=== PATIENT | male | born 1965 | race Caucasian/White ===

== ENCOUNTER 2018-03-12 05:58 | Inpatient (IN) | payer OTHER ==
[2018-03-05 15:56] VITALS: BMI 22.9
[2018-03-12] MEDS ORDERED: oxyCODONE HCL 10 MG SUSTAINED ACTING TABLET PO ONE (07:00)
[2018-03-12] MEDS ORDERED: PROPOFOL 20 ML ONE (07:33)
[2018-03-12] MEDS ORDERED: BUPIVACAINE HCL/PF 0.5% (5MG/ML) 10 ML VIAL ONE (07:36)
[2018-03-12] MEDS ORDERED: ceFAZolin SODIUM 1 GM VIAL ONE (07:37)
[2018-03-12] MEDS ORDERED: BUPIVACAINE LIPOSOME/PF (EXPAREL) 266 MG/20 ML VIAL ONE (07:40)
[2018-03-12] MEDS ORDERED: MIDAZOLAM HCL 2 MG/2 ML SINGLE DOSE VIAL ONE (07:40)
[2018-03-12] MEDS ORDERED: BUPIVACAINE HCL/PF (5 MG/ML) 30 ML VIAL IJ ONE (07:40)
[2018-03-12] MEDS ORDERED: LIDOCAINE 1%/EPI 1:100000 (20 ML MULTI DOSE VIAL) ONE (07:51)
[2018-03-12] MEDS ORDERED: THROMBIN (BOVINE) 5,000 UNIT VIAL TP ONE ×2 (07:51→09:26)
--- NOTE | 2018-03-12 08:17 | HP ---
History & Physical Update - History History: No Change - Physical Physical: No Change - Assessment Assessment: No Change - Plan Plan: No Change (full H&P in chart from his medical doctor on 02/24/2018)
[2018-03-12] MEDS ORDERED: LIDOCAINE HCL/PF 2% SDV 5ML VIAL ONE (08:51)
[2018-03-12] MEDS ORDERED: ACETAMINOPHEN 1000 MG/100 ML VIAL (NON FORMULARY) IVPB PRN (11:32)
[2018-03-12] MEDS ORDERED: oxyCODONE HCL 5 MG TABLET PO PRN ×2 (11:32)
[2018-03-12] MEDS ORDERED: ONDANSETRON 4 MG/2 ML VIAL IVPUSH PRN (11:32)
[2018-03-12] MEDS ORDERED: ACETAMINOPHEN 325 MG TABLET (FP) PO SCH (11:45)
[2018-03-12] MEDS ORDERED: LACTATED RINGERS SOLUTION 1,000 ML IV SCH (11:45)
[2018-03-12] MEDS ORDERED: ACETAMINOPHEN 325 MG TABLET (FP) PO PRN (11:47)
--- NOTE | 2018-03-12 12:02 | OP ---
Operative Note - Note: Operative Date: 03/12/18 Pre-Operative Diagnosis: spondylolisthesis Operation: posterior transformainal interbody fusion of L5-S1/decompression, instrumentation with allograft and neuromonitoring Surgeon: Lenin Fuentes Linter Drier Operator: Miranda Alcala Anesthesiologist/WRECKING SUPERVISOR: Tati Gavin Anesthesia: Spinal Estimated Blood Loss (mls): 20 Fluid Volume Replaced (mls): 850 Operative Report Dictated: Yes
--- NOTE | 2018-03-12 12:04 | SURG ---
Surgery Paleontology Teacher Note Paleontology Teacher: Miranda Alcala PA-C Date of Service: 03/12/18 Diagnosis: spondylolisthesis Procedure: posterior transformainal interbody fusion of L5-S1 with decompression/ instrumentation with allograft and neuromonitoring I was present for the entirety of the operative procedure. For further detail, please refer to operative report. Visit type - Case Type Case Type: Scheduled - Emergency Emergency Visit: No - New patient This patient is new to me today: Yes Date on this admission: 03/12/18
[2018-03-12] MEDS ORDERED: diazePAM 2 MG TABLET PO SCH ×2 (13:00→16:12)
[2018-03-12] MEDS ORDERED: diazePAM 5 MG TABLET ONE (13:11)
--- NOTE | 2018-03-12 13:16 | OP ---
DATE OF OPERATION: 03/12/2018 PREOPERATIVE DIAGNOSES: 1. Spinal stenosis, L5-S1. 2. Degenerative disk disease. POSTOPERATIVE DIAGNOSES: 1. Spinal stenosis, L5-S1. 2. Degenerative disk disease. PROCEDURE PERFORMED: 1. Revision laminectomy, L5-S1. 2. Transforaminal lumbar interbody fusion, L5-S1. 3. Placement of instrumentation. 4. Placement of cage. SURGEON: Lenin Fuentes MD IT NETWORK ARCHITECT: AURORA Zamarripa ESTIMATED BLOOD LOSS: 50 mL INTRAVENOUS FLUIDS: Per Anesthesia. ANESTHESIA: Spinal/TLIP. COMPLICATIONS: None. DISPOSITION: Patient was brought to the PACU in stable condition. INDICATION FOR SURGERY: The patient is a 52-year-old gentleman who has been suffering from pain from his back down his left leg. X-rays and MRI were completed which noted that he had spinal stenosis at L5-S1 secondary to his previous laminectomy. He also developed degenerative disk disease. We discussed different treatment options for him including a revision laminectomy versus fusion. Risks, benefits, and alternatives of both were discussed, and the patient consented to surgery. DESCRIPTION OF PROCEDURE: Patient was brought to the operating room by the anesthesia staff. After appropriate patient identification was performed, spinal anesthesia/TLIP block was given. Patient was able to position himself prone onto the OR table and avoid all bony prominences. EMG needles were placed in. The C-arm was brought in. The L5 and S1 pedicles were marked off. Next, 10 mL of lidocaine with epinephrine were injected into his back at this time. His back was prepped and draped in a sterile manner. At this point, timeout was completed. Incisions were made bilaterally over the L5 and S1 pedicles. Dissection was carried down to the fascia. Fascia was split open at this time. Under C-arm guidance, trocars were advanced into both the L5 and S1 pedicles. Through the trocars, wires were inserted. Over the wire, a tap was performed, and screws were inserted. On the left-hand side, retractor blades were set up to expose the L5-S1 facet joint. The facet joint was removed. The disk was entered using a series of pituitaries, Kerrisons, and curettes and francisco. A diskectomy was completed. The endplates were decorticated at this time. Bone graft was laid down. A cage filled with bone graft was placed in. Tulip heads were placed over the screws. A lizzy was measured and placed in the capsule. Final tightening was performed and compression. On the right-hand side, a lizzy was measured and placed in. Caps, compression, and final tightening were performed. All extra instrumentation was removed at this time. AP and lateral x-rays confirmed the instrumentation to be in good position. The fascia was closed with a No. 1 Vicryl suture. Subcutaneous tissue was closed with 2-0 Vicryl suture. Skin was closed with 3-0 Monocryl suture. Dermabond was applied. Steri-Strips were applied. A sterile dressing was applied. Patient was placed supine on the OR bed and brought to the PACU in stable condition. Mayra GASTON/[id number]
[2018-03-12] MEDS ORDERED: CEFAZOLIN 1 GM/D5W 1 GM/50 ML BAG ONE (15:46)
[2018-03-12] MEDS ORDERED: CEFAZOLIN 1 GM/D5W 1 GM/50 ML BAG IVPB SCH (16:00)
[2018-03-12 16:44] VITALS: PULSE 64
[2018-03-12 17:58] VITALS: BP 118/74; TEMP 98.4
[2018-03-12] MEDS ORDERED: ROSUVASTATIN CA 10 MG TABLET (FP) PO SCH (22:00)
[2018-03-13] MEDS ORDERED: LORATADINE 10 MG TABLET PO SCH (10:00)
== END 2018-03-12 17:40 | disposition home or self-care (01) | DRG 304 ==
LOC: FM/S 05:58
PROVIDERS: ADMIT Orthopaedic Surgery Orthopaedic Surgery of the Spine; ATTEND Orthopaedic Surgery Orthopaedic Surgery of the Spine
PROC: 0QB00ZZ Excision of Lumbar Vertebra, Open Approach (ICD-10-PCS; 2018-03-12)
PROC: 0SG30AJ Fusion of Lumbosacral Joint with Interbody Fusion Device, Posterior Approach, Anterior Column, Open Approach (ICD-10-PCS; principal; 2018-03-12 09:33)
DX: M43.17 Spondylolisthesis, lumbosacral region (principal); M48.07 Spinal stenosis, lumbosacral region; M51.37 Other intervertebral disc degeneration, lumbosacral region
CPT/HCPCS: 72100-TC-FY; 76001-TC-FY; 94760